=== PATIENT | male | born 1980 | race Caucasian/White ===

== ENCOUNTER 2018-03-07 09:47 | Emergency (ER) | payer OTHER ==
[2018-03-07 10:02] VITALS: BP 165/100; PULSE 78; O2SAT 100
[2018-03-07] MEDS ORDERED: Augmentin 875-125 Tablet PO ONE (10:08)
--- NOTE | 2018-03-07 10:13 | ERPHSYRPT ---
- History of Present Illness Time Seen by Provider: 03/07/18 10:02 Source: patient Exam Limitations: no limitations Patient Subjective Stated Complaint: facial/dental pain x 1 1/2 weeks scheduled appt Friday at [facility] Triage Nursing Assessment: alert and oriented. noted slight swelling to right cheek states facial/dental pain x 1 1/2 weeks. denies fever/injury. Has dentist appointment friday.. has bad pain Physician History: 37 y/o male comes to the ER with complaints of right lower tooth pain that started several days ago. Pt describes the pain as sharp, constant, with radiation to jaw, 03/23 and not relieved by ibuprofen. Pt has an appointment on Friday. Pt denies any fever. Timing/Duration: gradual onset Severity: severe ENT Location: facial, dental Prearrival Treatment: over the counter meds Modifying Factors: Improves With: nothing Associated Symptoms: tooth pain Allergies/Adverse Reactions: No Known Drug Allergies Allergy (Unverified 03/07/18 10:02) - Review of Systems Constitutional: No Fever, No Chills Eyes: No Symptoms Ears, Nose, & Throat: Mouth Pain Respiratory: No Cough, No Dyspnea Cardiac: No Chest Pain, No Edema, No Syncope Abdominal/Gastrointestinal: No Abdominal Pain, No Nausea, No Vomiting, No Diarrhea Genitourinary Symptoms: No Dysuria Musculoskeletal: No Back Pain, No Neck Pain Skin: No Rash Neurological: No Dizziness, No Focal Weakness, No Sensory Changes Psychological: No Symptoms Endocrine: No Symptoms All Other Systems: Reviewed and Negative - Past Medical History Pertinent Past Medical History: Yes Neurological History: No Pertinent History Cardiac History: No Pertinent History Respiratory History: No Pertinent History Endocrine Medical History: No Pertinent History Musculoskeletal History: No Pertinent History - Past Surgical History Past Surgical History: Yes - Social History Smoking Status: Never smoker Exposure to second hand smoke: No Drug Use: none Patient Lives Alone: No - Nursing Vital Signs Nursing Vital Signs: Initial Vital Signs Temperature 98.2 F 03/07/18 09:57 Pulse Rate 78 03/07/18 09:57 Respiratory Rate 18 03/07/18 09:57 Blood Pressure 165/100 03/07/18 09:57 O2 Sat by Pulse Oximetry 100 03/07/18 09:57 Pain Scale Pain Intensity 8 - Physical Exam General Appearance: mild distress, alert Eye Exam: bilateral eye: PERRL, EOMI Nasal Exam: normal inspection Throat Exam: pharynx normal, dental tenderness, moist mucus membranes, No tonsillar exudate Neck Exam: supple Cardiovascular/Respiratory Exam: normal breath sounds, regular rate/rhythm Abdominal Exam: non-tender, soft Neurologic Exam: alert, oriented x 3, sensation nml, No motor deficits Skin Exam: normal color, warm, dry SpO2: 100 Oxygen Delivery: Room Air - Course Nursing assessment & vital signs reviewed: Yes - Progress Progress: unchanged Progress Note: 03/07/18 10:11 Pt has a dental infection and will be given a short course of norco and augmentin. Pt will F/U with dentist on Friday. - Departure Time of Disposition: 10:11 Departure Disposition: Home Clinical Impression: Dental infection Condition: Stable Critical Care Time: No Instructions: Tooth Abscess (DC) Additional Instructions: Follow up with your dentist on Friday for further recommendations. Finish the antibiotics until completion. Prescriptions: Amoxicillin/Potassium Clav [Augmentin 875-125 Tablet] 875 mg PO BID #19 tablet Hydrocodone Bit/Acetaminophen [Terry 5-325 Tablet] 1 each PO QID PRN #15 tablet MDD 4 PRN Reason: Pain
[2018-03-07] MEDS ORDERED: Augmentin 875-125 Tablet ONE (10:14)
== END 2018-03-07 10:15 | disposition home or self-care (01) ==
LOC: ED 09:47
DX: K04.7 Periapical abscess without sinus (principal)
CPT/HCPCS: 99283; A9270-GY

== ENCOUNTER 2024-07-26 06:22 | Emergency (ER) | payer OTHER ==
[2024-07-26 06:36] VITALS: TEMP 97.5
--- NOTE | 2024-07-26 07:22 | ERPHSYRPT ---
- History of Present Illness Time Seen by Provider: 07/26/24 07:10 Source: patient Exam Limitations: no limitations Patient Subjective Stated Complaint: PT. STATES,"MY TOOTH, GUMS AND FACE BEGAN HURTING AND SWELLING ON FRIDAY. IT HAS PROGRESSIVELY WORSENED. I WENT TO [facility] LAST NIGHT AND PLANNED TO GET MY MEDICINE TODAY BUY I WOKE UP AND IT IS MORE SWOLLEN AND THE PAIN IS MOVING UP INTO MY SINUS CAVITY." Triage Nursing Assessment: A&OX3, SKIN P/W/D, RESP EVEN UNLABORED. ABLE TO MOVE ALL 4 EXT. AMBULATED TO ROOM WITHOUT DIFFICULTY. LEFT SIDE OF FACE IS SWOLLEN. BROKEN TEETH AND DENTAL CARIES NOTED. Physician History: This is a 43-year-old white male patient who drove in to the emergency department on his own by private vehicle secondary to left upper molar dental pain and left facial swelling. Patient stated that he noticed the pain and swelling on Friday prior to this evaluation. He was seen at [facility] in [facility] last evening at approximately 10 PM. At that time he received a Toradol intramuscular injection and an oral capsule of amoxicillin. Prescriptions for amoxicillin and [place] 5/325 were remotely sent into his pharmacy but he has yet to pick them up. This morning, when he awoke, the swelling was worse and he became concerned. Patient has no known drug allergies and he takes no medications chronically. He has no respiratory difficulties. He has not seen a dentist for this issue. Timing/Duration: gradual onset Severity: mild (Moderate) ENT Location: facial (Left cheek swelling), dental (Left upper molars) Prearrival Treatment: over the counter meds (In addition he received an amoxicillin capsule and intramuscular injection of Toradol at [facility] last night) Associated Symptoms: facial pain/swelling (Left cheek), tooth pain (Left upper molar) Allergies/Adverse Reactions: No Known Drug Allergies Allergy (Verified 07/26/24 06:27) Home Medications: No Reportable Medications [No Reported Medications] 07/26/24 [History] Hx Tetanus, Diphtheria Vaccination/Date Given: No Hx Influenza Vaccination/Date Given: No Hx Pneumococcal Vaccination/Date Given: No Immunizations Up to Date: No Travel Risk - International Travel Have you traveled outside of the country in past 3 weeks: No - Emerging Infectious Disease Are you exhibiting symptoms associated with any current EIDs: No - Review of Systems Constitutional: No Symptoms Eyes: No Symptoms Ears, Nose, & Throat: Other (Left cheek swelling and left upper molar dental pain) Respiratory: No Symptoms Cardiac: No Symptoms Abdominal/Gastrointestinal: No Symptoms Genitourinary Symptoms: No Symptoms Musculoskeletal: No Symptoms Skin: No Symptoms Neurological: No Symptoms Psychological: No Symptoms Endocrine: No Symptoms Hematologic/Lymphatic: No Symptoms Immunological/Allergic: No Symptoms All Other Systems: Reviewed and Negative - Past Medical History Pertinent Past Medical History: No Neurological History: No Pertinent History ENT History: No Pertinent History Cardiac History: No Pertinent History Respiratory History: No Pertinent History Endocrine Medical History: No Pertinent History Musculoskeletal History: No Pertinent History GI Medical History: No Pertinent History History: No Pertinent History Psycho-Social History: No Pertinent History Male Reproductive Disorders: No Pertinent History Other Medical History: R ankle fx as a teenager - Past Surgical History Past Surgical History: No Neuro Surgical History: No Pertinent History Cardiac: No Pertinent History Respiratory: No Pertinent History Gastrointestinal: No Pertinent History Genitourinary: No Pertinent History Musculoskeletal: No Pertinent History Male Surgical History: No Pertinent History - Social History Smoking Status: Never smoker Exposure to second hand smoke: No Drug Use: none Patient Lives Alone: No - Social Determinants of Health Will the patient participate in the screening: Declined to provide - Nursing Vital Signs Nursing Vital Signs: Initial Vital Signs Temperature 97.5 F 07/26/24 06:28 Pulse Rate 111 H 07/26/24 06:28 Respiratory Rate 18 07/26/24 06:28 O2 Sat by Pulse Oximetry 95 07/26/24 06:28 Pain Scale Pain Intensity 7 - Physical Exam General Appearance: no apparent distress, alert Eye Exam: bilateral eye: normal inspection, PERRL, EOMI Ear Exam: bilateral ear: auricle normal Nasal Exam: sinus tenderness (Left side to palpation) Throat Exam: dental tenderness (Left upper molars), maxillary swelling (Left cheek swelling), moist mucus membranes, No excessive drooling, No pharynx tenderness, No voice changes Neck Exam: normal inspection, non-tender, supple, full range of motion Cardiovascular/Respiratory Exam: chest non-tender, no respiratory distress Abdominal Exam: non-tender Neurologic Exam: alert, oriented x 3, normal mood/affect, sensation nml Skin Exam: normal color, warm, dry SpO2 Interpretation: normal SpO2: 95 O2 Delivery: Room Air - Course Nursing assessment & vital signs reviewed: Yes Ordered Tests: Active Orders 24 hr Category Date Time Status FACIAL BONES WO CONTRAST [CT] Stat Exams 07/26/24 06:47 Taken Medication Summary Discontinued Medications Generic Name Dose Route Start Last Admin Trade Name María PRN Reason Stop Dose Admin Ceftriaxone Sodium 1,000 mg 07/26/24 07:28 07/26/24 07:33 Ceftriaxone Sodium 1000 Mg Inj Vial IM 07/26/24 07:29 1,000 mg STAT ONE Administration Ceftriaxone Sodium Confirm 07/26/24 07:31 Ceftriaxone Sodium 1000 Mg Inj Vial Administered 07/26/24 07:32 Dose 1,000 mg .ROUTE .STK-MED ONE Methylprednisolone Sodium 0 mg 07/26/24 07:28 07/26/24 07:32 Succinate 125 mg/ Sterile IM 07/26/24 07:29 125 mg Water 2 ml STAT ONE Administration Lidocaine HCl Confirm 07/26/24 07:31 Lidocaine Hcl 1% 20 Ml Mdv 20 Ml Ml Administered 07/26/24 07:32 Dose 3 ml .ROUTE .STK-MED ONE Methylprednisolone Sodium Succinate Confirm 07/26/24 07:31 Methylprednis Sod Succ 125 Mg/2 Ml Vial Administered 07/26/24 07:32 Dose 125 mg .ROUTE .STK-MED ONE Sterile Water Confirm 07/26/24 07:31 Water For Injection,Sterile 10 Ml Vial Administered 07/26/24 07:32 Dose 10 ml IJ .STK-MED ONE - Progress Progress: unchanged, pain not gone completely Progress Note: 07/26/24 07:34 My medical decision making and the assignment of low complexity to this patient's medical issue today is based on review of the patient's past medical history, review of the patient's medication list, reviewed patient drug allergy list, history present illness and physical findings on examination. The workup today includes a CT scan of the patient's facial bones and soft tissue to evaluate for presence/absence of abscess. Differential diagnosis includes but is not limited to dental infection with or without abscess causing left facial pain and swelling, left side sinus infection 07/26/24 08:[address] scan of the face without contrast was interpreted by the radiologist and I reviewed the impression. The impression states mild left facial soft tissue swelling, multiple bilateral dental caries, left frontal and left ethmoid sinus disease. Small bilateral nonpathologic left cervical and submandibular lymph nodes. No acute bony pathology. Counseled pt/family regarding: diagnosis, need for follow-up, rad results Medical Desision Making - Diagnostic Testing Diagnostic test were ordered, analyzed, and reviewed by me: Yes Radiological Interpretation: Reviewed by me, Teleradiologist Report - Risk of complications Low Risk: Low risk of morbidity from additional dx testing or treatment - Departure Departure Disposition: Home Clinical Impression: Dental caries, Sinusitis, Left facial swelling Condition: Stable Critical Care Time: No Referrals: RED GUILLERMO [Primary Care Provider] - Follow up/PCP as directed Additional Instructions: Continue your antibiotics as prescribed. Call a dentist today, 07/26/2024, to make arrangements for an appointment to be seen in the next 1 to 2 days for definitive care.
[2024-07-26] MEDS ORDERED: Rocephin 1000 MG INJ ONE (07:31)
[2024-07-26] MEDS ORDERED: XYLOCAINE 1% HCL 20 ML MDV ONE (07:31)
[2024-07-26] MEDS ORDERED: Sterile H2O 10 ml IJ ONE (07:31)
[2024-07-26] MEDS ORDERED: solu-MEDROL ONE (07:31)
[2024-07-26] MEDS: solu-MEDROL 125 MG, Sterile H2O 10 ml 2 ML IM ONE (07:32)
[2024-07-26] MEDS: Rocephin 1000 MG INJ IM ONE (07:33)
[2024-07-26] MEDS: NORCO 5/325 MG PO ONE (08:11)
[2024-07-26] MEDS ORDERED: NORCO 5/325 MG ONE (08:11)
[2024-07-26 08:15] VITALS: BP 168/90; PULSE 72; RESP 20; O2SAT 98
--- NOTE | 2024-07-26 08:59 | XRAY ---
Indication: Abscess. Multiple contiguous axial images obtained through the facial bones without contrast as ordered. Comparison: None Mild left facial subcutaneous soft tissue swelling/induration presumed inflammatory/infectious. No focal walled off fluid collection, soft tissue emphysema, or abscess on this noncontrast exam. Enlarged palatine tonsils narrows the oropharynx. Remaining supra and infraglottic airway widely patent. Normal epiglottis. Scattered centimeter/subcentimeter cervical and submandibular lymph nodes bilaterally, none pathologically enlarged. Major arteries and veins are normal in course and caliber. Noncontrasted thyroid gland unremarkable. No acute fracture or suspicious bony lesions. Moderate nasal septal deviation to the right. There are numerous bilateral dental caries. Moderate mucosal thickening left ethmoid/left frontal sinuses with lesser degree right frontal sinus. Base of brain unremarkable. Impression: 1. Left facial soft tissue swelling/induration presumed inflammatory/infectious.. No focal walled off fluid collection, abscess, or pathologic lymphadenopathy. 2. Incidental enlarged palatine tonsils, paranasal sinus disease, nasal septal deviation, and multiple dental caries.
== END 2024-07-26 08:18 | disposition home or self-care (01) ==
LOC: ED 06:22
DX: K02.9 Dental caries, unspecified (principal); J32.8 Other chronic sinusitis; R22.0 Localized swelling, mass and lump, head; K08.89 Other specified disorders of teeth and supporting structures
CPT/HCPCS: 70486; 96372; 99284; J0696; J2919; A9270-GY